=== PATIENT | female | born 1940 | race Caucasian/White ===

== ENCOUNTER → 2016-09-22 | Outpatient (CLI) | payer MEDICARE ==
[~2016-09-22] MED LIST: ASPIRIN 32325 MG/TAB PO; CARDIZEM CD 12120 MG PO; COZAAR100 MG PO; MULTI VITAMINS1 TAB PO; PEPCID 20MG TAB20 MG PO; SYNTHROID0.05 MG/TA PO; TOPROL XL100 MG PO; XANAX 0.5MG0.5 MG PO; ZOCOR 10MG10 MG PO
[2016-09-22 10:19] LABS: BASO # 0.1 (0.0-0.2); BASO % 0.8 % (0.0-2.0); EOS # 0.1 (0.0-0.7); EOS % 1.5 % (0-4.0); GRAN # 2.9 (1.4-6.5); GRAN % 47.7 % (42.2-75.2); HEMATOCRIT 39.8 % (37.0-47.0); HEMOGLOBIN 13.3 g/dl (12.5-16.0); LYMPH # 2.5 (1.2-3.4); LYMPH % 41.4 % (20.0-51.0); MEAN CELL VOLUME 95 fl (80.0-100.0); MEAN CORPUSCULAR HEMOGLOBIN 32 pg (27.0-31.0); MEAN CORPUSCULAR HGB CONC 33 g/dl (33.0-37.0); MEAN PLATELET VOLUME 9.5 fl (7.4-10.4); MONO # 0.5 (0.1-0.6); MONO % 8.4 % (1.7-9.3); PLATELET COUNT 305 K/mm3 (130-400); RED BLOOD COUNT 4.18 M/mm3 (4.10-5.30); REDCELL DISTRIBUTION WIDTH-CV 13.6 % (11.5-14.5); WHITE BLOOD COUNT 6.1 K/mm3 (4.8-10.8)
[2016-09-22 10:30] LABS: ADJUSTED CALCIUM 9.5 mg/dL (8.4-10.2); ALBUMIN 4.2 gm/dL (3.5-5.0); BILIRUBIN,TOTAL 0.9 mg/dL (0.0-1.0); CALCIUM 9.7 mg/dL (8.4-10.2); CREATININE, serum 0.8 mg/dL (0.52-1.25); TOTAL PROTEIN 7.3 gm/dL (6.4-8.2)
== END ==
LOC: COL.RAD 09:38
PROVIDERS: Internal Medicine
DX: E04.1 Nontoxic single thyroid nodule (principal)

== ENCOUNTER → 2017-01-05 | Outpatient (CLI) | payer MEDICARE, MEDICAID | LOC: COL.RAD 09:45 | DX: N28.1 Cyst of kidney, acquired (principal); I70.0 Atherosclerosis of aorta ==

== ENCOUNTER → 2017-02-28 | Outpatient (CLI) | payer MEDICARE ==
[~2017-02-28] VITALS: Ht 160 cm; Wt 54.6 kg
[2017-02-28 11:54] VITALS: BP 151/94; PULSE 67
[2017-02-28 13:10] VITALS: BP 157/93; PULSE 71
== END ==
LOC: COL.VAS 08:15
DX: E04.1 Nontoxic single thyroid nodule (principal); I65.22 Occlusion and stenosis of left carotid artery; E03.9 Hypothyroidism, unspecified; E78.5 Hyperlipidemia, unspecified; F17.210 Nicotine dependence, cigarettes, uncomplicated; I10 Essential (primary) hypertension; Z90.710 Acquired absence of both cervix and uterus; Z90.721 Acquired absence of ovaries, unilateral; Z98.890 Other specified postprocedural states

== ENCOUNTER → 2021-04-24 | Outpatient (CLI) | payer MEDICARE | LOC: COL.RAD 10:56 | DX: K57.30 Diverticulosis of large intestine without perforation or abscess without bleeding (principal) | CPT/HCPCS: Q9967 ==

== ENCOUNTER 2021-08-01 15:58 | Inpatient (IN) | payer MEDICARE ==
[~2021-08-01] VITALS: Ht 160 cm; Wt 50.4 kg
[2021-08-01 18:40] LABS: BASO % 0.4 % (0.0-2.0); EOS # 0.1 K/mm3 (0.0-0.7); EOS % 0.9 % (0-4.0); GRAN # 6.2 K/mm3 (1.4-6.5); GRAN % 77.9 % (42.2-75.2); HEMOGLOBIN 11.8 g/dl (12.5-16.0); LYMPH # 1.2 K/mm3 (1.2-3.4); LYMPH % 14.6 % (20.0-51.0); MEAN CELL VOLUME 97 fl (80.0-100.0); MEAN CORPUSCULAR HEMOGLOBIN 32 pg (27.0-31.0); MEAN CORPUSCULAR HGB CONC 32 g/dl (33.0-37.0); MEAN PLATELET VOLUME 9.6 fl (7.4-10.4); MONO # 0.5 K/mm3 (0.1-0.6); MONO % 5.9 % (1.7-9.3); PLATELET COUNT 374 K/mm3 (130-400); RED BLOOD COUNT 3.75 M/mm3 (4.10-5.30); REDCELL DISTRIBUTION WIDTH-CV 13.9 % (11.5-14.5)
[2021-08-01 18:46] LABS: HEMATOCRIT 36.4 % (37.0-47.0)
[2021-08-01 19:01] LABS: PROTHROMBIN TIME 10.9 SECONDS (9.7-12.8)
[2021-08-01 19:50] LABS: ALBUMIN 3.6 gm/dL (3.4-4.8); BILIRUBIN,TOTAL 0.3 mg/dL (0.2-1.2); CALCIUM 9.1 mg/dL (8.4-10.2); CREATININE, serum 0.79 mg/dL (0.57-1.11); POTASSIUM 3.8 mmol/L (3.5-4.5); TOTAL PROTEIN 6.4 gm/dL (6.2-8.1)
[2021-08-01] MEDS ORDERED: FOSAMAX 70MG TA70 MG PO (19:52)
[2021-08-01] MEDS ORDERED: ZOFRAN 4MG T4 MG/TAB PO (19:52)
[2021-08-01] MEDS ORDERED: HCTZ12.5TAB PO (19:53)
[2021-08-01] MEDS ORDERED: NORCO 325 MG-51 TAB PO (19:53)
[2021-08-01] MEDS ORDERED: BENICAR40 MG PO (19:54)
[2021-08-01 20:31] LABS: COLLECTION METHOD CATHETER
[2021-08-01] MEDS ORDERED: PRIL40 PO (20:33)
[2021-08-01 20:36] LABS: PH 5 (5-8); SQUAMOUS EPITHELIAL None Seen /hpf (0-10); URINE APPEARANCE Clear (CLEAR/HAZY); URINE BACTERIA None Seen (NONE SEEN); URINE BILIRUBIN Negative (NEGATIVE); URINE BLOOD Negative (NEGATIVE); URINE COLOR Yellow (YELLOW); URINE GLUCOSE Negative (NEGATIVE); URINE KETONE Negative (NEGATIVE); URINE LEUKOCYTE ESTERASE Trace (NEGATIVE); URINE NITRATE Negative (NEGATIVE); URINE PROTEIN(semi-quant) Negative (NEGATIVE); URINE RBC 0-2 /hpf (0-2); URINE UROBILINOGEN Negative (NEGATIVE)
[2021-08-01 20:40] VITALS: BP 157/63; PULSE 81; TEMP 98.1
[2021-08-02] VITALS (12 sets, daily range): BP systolic 102–155; BP diastolic 43–72; PULSE 16–94; TEMP 97.7–98.6
--- NOTE | 2021-08-02 00:18 | NUR ---
Pt. arrived to the floor at 08/01. Pt. was A&OX3, assessment was completed at that time. 16 Fr. steele catheter placed with 1 attempt. Pt. tolerated well. Pt. reported pain at a 7 on pain scale, gave pain meds. Pt. denied further needs, call light was within reach. At this time. Pt. reports pain at a 6 on pain scale, will give pain meds per orders. Pt. denies further needs.
[2021-08-02 08:03] LABS: BASO % 0.6 % (0.0-2.0); EOS # 0.1 K/mm3 (0.0-0.7); EOS % 0.9 % (0-4.0); GRAN # 4.2 K/mm3 (1.4-6.5); GRAN % 61.2 % (42.2-75.2); HEMOGLOBIN 10.3 g/dl (12.5-16.0); LYMPH # 1.8 K/mm3 (1.2-3.4); LYMPH % 25.8 % (20.0-51.0); MEAN CELL VOLUME 96 fl (80.0-100.0); MEAN CORPUSCULAR HEMOGLOBIN 31 pg (27.0-31.0); MEAN CORPUSCULAR HGB CONC 33 g/dl (33.0-37.0); MEAN PLATELET VOLUME 9.9 fl (7.4-10.4); MONO # 0.8 K/mm3 (0.1-0.6); MONO % 11.2 % (1.7-9.3); PLATELET COUNT 327 K/mm3 (130-400); RED BLOOD COUNT 3.31 M/mm3 (4.10-5.30); REDCELL DISTRIBUTION WIDTH-CV 13.9 % (11.5-14.5)
[2021-08-02 08:05] LABS: HEMATOCRIT 31.6 % (37.0-47.0)
[2021-08-02 08:12] LABS: CALCIUM 9.3 mg/dL (8.4-10.2); CREATININE, serum 0.86 mg/dL (0.57-1.11); POTASSIUM 3.5 mmol/L (3.5-4.5)
--- NOTE | 2021-08-02 10:32 | NUR ---
Hospitalist rounds, ekg obtained, cleared for surgery. Ortho aware. Patient signs consent, fall precautions in place. TEDs applied. SCD's on. IV fluids infusing as ordered to right wrist IV site. Morphine given x2 for pain. Son called, updated on patient going to OR for blocks, instruction on how to get to the OR waiting room and to call the number to let them know when he arrives. Son states understanding. Ziegler catheter to dependent drainage clear yellow urine, secured, catheter care given. Patient describes chronic reddened area to upper buttock/coccyx area, reports it chronically gets worse and then better. No noted open areas, reddened, and scarred. Foam coccyx dressing applied to this area for protection. Patient repositioned q 2 hours. Ice to right hip. Alert, oriented x4. Makes needs known. See MAR for medications given/held prior to surgery. Patient down to OR at approx 1020, report given to RUTHIE Adamson.
--- NOTE | 2021-08-02 12:38 | NUR ---
Patient returns to room 326 accompanied by the PACU nurse at 1225. Patient reports only mild discomfort. Dressings to right hip, gauze and tegaderm x3. TAking in ice water without c/o nausea. Family at bedside. IV fluids infusing to right wrist INT. Ziegler catheter to dependent drainage. TEDs on, SCD's on. IS encouraged. Post op VS WNL. CAll light within reach.
--- NOTE | 2021-08-02 18:08 | NUR ---
Patient denies pain since returning from OR. VSS. EAts dinner meal with no n/v. Alert, oriented x4, talking on phone. ICE to incisions. CAll light within reach. FAll precautions in place.
--- NOTE | 2021-08-02 19:45 | NUR ---
Pt. laying in bed at this time. Pt. is A&OX3, assessment complete. IV to rt. forearm patent, IV Fluids infusing per orders. Ziegler catheter to DD, clear yellow urine noted. Dressings x3 to rt. hip/thigh, CDI. Pt. reports pain at a 6 on pain scale, gav pain meds per orders. Pt. denies further needs, call light within reach.
[2021-08-03] VITALS (7 sets, daily range): BP systolic 107–149; BP diastolic 54–95; PULSE 74–77; TEMP 97.5–98.6
[2021-08-03 06:58] LABS: HEMATOCRIT 28.5 % (37.0-47.0); HEMOGLOBIN 9.5 g/dl (12.5-16.0)
[2021-08-03 07:15] LABS: CALCIUM 8.2 mg/dL (8.4-10.2); CREATININE, serum 0.65 mg/dL (0.57-1.11); MAGNESIUM 1.7 mg/dL (1.6-2.6); POTASSIUM 3.6 mmol/L (3.5-4.5)
--- NOTE | 2021-08-03 10:00 | NUR ---
PT UP TO RECLINER WITH THERAPY AFTER HAVING CT DONE THIS AM. NEW DIET ORDER IN. PT TO REHAB AT A SNF OR IPR.
--- NOTE | 2021-08-03 14:26 | NUR ---
Hand Gluer And Slicer met with patient to discuss discharge planning. Patient lives alone in [place] and sees Dr. Handley for primary care. Patient has medications delivered from [facility] with no difficulties. Patient states she has a cane but normally does not use any DME and is independent with ADLS. Patient advised she is not sure if she has DPOA-HC. Patient reports her , Pierre lives at [facility] and she has two living, adult children: Stephon (ph#[phone]) and Manuel. SW reviewed PT recommendation for post acute rehab and patient is agreeable to this. Patient's preferences for rehab are 1)[facility] and 2)[facility]. CHILO contacted Milla at [facility] and faxed referral. CHILO then contacted Macrina, [facility] Director to give referral. CHILO also contacted patient's son, Stephon to provide update and he is in agreement with patient going to rehab at time of discharge. CHILO faxed clinicals to [facility] as patient as a Medicare Advantage Plan ([facility]). CHILO was contacted by Milla at [facility] who advised they are able to accept patient for a skilled stay. Discharge Plan: [facility]
--- NOTE | 2021-08-03 20:53 | NUR ---
PT IN BED, REPORTS PAIN TO LEFT HEEL AND COCCYX. HAS MEPILEX INTACT TO COCCYX. MEDICATED WITH HS MEDS INCLUDING OXYCODONE 5MG PO AND ELEVATED HEELS ON PILLOW. HAS DRSGS X3 TO RT HIP/THIGH. SL TO RFA, FLUSHES WELL. HAS PRODUCTIVE COUGH AT TIMES. SCDS ON. CAMARGO TO BSD WITH YELLOW URINE.
--- NOTE | 2021-08-03 22:56 | NUR ---
STILL COMPLAINS OF LEFT HEEL PAIN, REMOVED LEFT SCD AND ELVIE STODDARD. MEDICATED WITH NORCO 5/325 1 TAB PO NOW.
[2021-08-04 03:21] VITALS: BP 131/59; PULSE 64; TEMP 98.4
--- NOTE | 2021-08-04 05:41 | NUR ---
PT TAKES OXYCODONE 5MG PO FOR PAIN. SCHEDULED AM MEDS GIVEN.
[2021-08-04 06:45] LABS: BASO % 0.3 % (0.0-2.0); EOS % 0.1 % (0-4.0); GRAN # 6.9 K/mm3 (1.4-6.5); GRAN % 70.6 % (42.2-75.2); LYMPH # 1.8 K/mm3 (1.2-3.4); LYMPH % 18.7 % (20.0-51.0); MEAN CELL VOLUME 94 fl (80.0-100.0); MEAN CORPUSCULAR HGB CONC 33 g/dl (33.0-37.0); MEAN PLATELET VOLUME 10.2 fl (7.4-10.4); MONO % 9.9 % (1.7-9.3); PLATELET COUNT 287 K/mm3 (130-400); RED BLOOD COUNT 2.79 M/mm3 (4.10-5.30); REDCELL DISTRIBUTION WIDTH-CV 14.1 % (11.5-14.5)
[2021-08-04 06:49] LABS: HEMATOCRIT 26.3 % (37.0-47.0); HEMOGLOBIN 8.7 g/dl (12.5-16.0); MEAN CORPUSCULAR HEMOGLOBIN 31 pg (27.0-31.0)
[2021-08-04 07:01] LABS: CREATININE, serum 0.64 mg/dL (0.57-1.11); POTASSIUM 3.6 mmol/L (3.5-4.5)
[2021-08-04 08:00] VITALS: BP 156/87; PULSE 70; TEMP 98.8
--- NOTE | 2021-08-04 10:30 | NUR ---
Initial visit; Patient thanked Hospitality Aide for looking in on her and offering God's blessings and to keep her in Hospitality Aide's prayers.
--- NOTE | 2021-08-04 10:49 | NUR ---
PT UP TO RECLINER WITH THERAPY. BREAKFAST ORDERED. PHYSICAIN ROUNDING. PLAN ON TRANSFER TO [facility] AFTER INSURANCE CLEARANCE.
[2021-08-04 11:27] VITALS: BP 135/64; PULSE 65; TEMP 98.2
[2021-08-04 16:00] VITALS: BP 159/76; PULSE 73; TEMP 99
--- NOTE | 2021-08-04 16:21 | NUR ---
Jackaroo contacted [facility] and was advised they do not manage her plan. CHILO provided this update to Milla at [facility]. Milla inquired about patient's outpatient biopsy. CHILO collaborated with DUSTIN Doyle who advised Dr. Davis recommended patient go to rehab for her hip prior to biopsy. Milla states her team is agreeable to this. Milla called and advised they heard back from patient's insurance and were advised patient does not require prior authorization. Milla states they are able to accept patient tomorrow. CHILO updated patient's RN. CHILO met with patient and advised her that [facility] can accept tomorrow. Patient is agreeable to this. CHILO also contacted patient's son, Stephon to provide update. Discharge Plan: [facility]
--- NOTE | 2021-08-04 19:30 | NUR ---
ASSISTED PT TO BATHROOM, HAS LARGE BROWN LIQUID STOOL. BACK TO BED WITH ONE ASSIST/GAIT BELT/WALKER. HAS CAMARGO TO BSD WITH YELLOW URINE.
--- NOTE | 2021-08-04 19:42 | NUR ---
MEDICATED WITH ZOFRAN PO FOR NAUSEA. ALSO TAKES OXYCODONE 5MG PO AND XANAX 0.5 MG PO FOR ANXIETY AND RT HIP PAIN. DRSGS D/I TO RT HIP/THIGH. SL TO RFA FLUSHES WELL.
[2021-08-04 19:53] VITALS: BP 133/62; PULSE 76; TEMP 98
--- NOTE | 2021-08-04 22:09 | NUR ---
MEDICATED WITH HS MEDS INCLUDING NORCO FOR PAIN. [facility]
[2021-08-05 00:23] VITALS: BP 147/70; PULSE 68; TEMP 97.8
[2021-08-05 03:14] VITALS: BP 106/57; PULSE 68; TEMP 98
--- NOTE | 2021-08-05 06:30 | NUR ---
Takes scheduled morning meds without problem. Good urine output from steele.
--- NOTE | 2021-08-05 06:40 | NUR ---
appears to be sleeping, bedside shift report received from RUTHIE Cisneros
--- NOTE | 2021-08-05 07:45 | NUR ---
DUSTIN Brink in to see patient, order received and steele catheter discontinued, urine is light brenda and she was encouraged to drink more water, verbalizes understanding, full assessment completed, see interventions for further info, c/o a "lump" under her buttocks, removed pressure ulcer dressing, cocyx is reddened and new smaller foam dressing applied
[2021-08-05 08:12] VITALS: BP 135/61; PULSE 73; TEMP 98.3
[2021-08-05 08:16] LABS: BASO % 0.5 % (0.0-2.0); EOS % 0.5 % (0.0-4.0); GRAN # 5.2 K/mm3 (1.4-6.5); GRAN % 62.4 % (42.2-75.2); LYMPH # 2.2 K/mm3 (1.2-3.4); LYMPH % 26.1 % (20.0-51.0); MEAN CELL VOLUME 94 fl (80.0-100.0); MEAN CORPUSCULAR HGB CONC 33 g/dl (33.0-37.0); MEAN PLATELET VOLUME 10.3 fl (7.4-10.4); MONO # 0.9 K/mm3 (0.1-0.6); MONO % 10.4 % (1.7-9.3); PLATELET COUNT 332 K/mm3 (130-400); RED BLOOD COUNT 2.98 M/mm3 (4.10-5.30); REDCELL DISTRIBUTION WIDTH-CV 14.2 % (11.5-14.5)
[2021-08-05 08:18] LABS: HEMATOCRIT 27.9 % (37.0-47.0); HEMOGLOBIN 9.2 g/dl (12.5-16.0); MEAN CORPUSCULAR HEMOGLOBIN 31 pg (27-31)
[2021-08-05 08:19] LABS: CALCIUM 9.3 mg/dL (8.4-10.2); CREATININE, serum 0.73 mg/dL (0.57-1.11); POTASSIUM 3.6 mmol/L (3.5-4.5)
[2021-08-05] MEDS ORDERED: OSCAL 500 TAB500 MG PO (08:20)
[2021-08-05] MEDS ORDERED: TYLENOL 500MG500 MG PO (08:21)
[2021-08-05] MEDS ORDERED: VITAMIN C500 MG PO (08:21)
[2021-08-05] MEDS ORDERED: NORCO 325 MG-51 TAB PO (08:46)
[2021-08-05] MEDS ORDERED: XANAX 0.5MG0.5 MG PO (08:46)
--- NOTE | 2021-08-05 09:00 | NUR ---
had breakfast and tolerated well
--- NOTE | 2021-08-05 09:15 | NUR ---
occupational therapy was in and worked with patient and assisted up into recliner, medicated with norco 5mg 1 tab for c/o pain to right hip,
--- NOTE | 2021-08-05 09:45 | NUR ---
physical therapy was in and worked with patient and assisted her back to bed per the patient's request, will encourage patient stay up longer in chair the next time
[2021-08-05 10:26] VITALS: BP 135/61; PULSE 73; TEMP 98.3
--- NOTE | 2021-08-05 10:50 | NUR ---
STEEPING PRESS TENDER in to assist her with getting cleaned up and dressed for transfer to [facility], ambulated to bathroom and voided qs
[2021-08-05 11:43] VITALS: BP 136/64; PULSE 72; TEMP 98.5
--- NOTE | 2021-08-05 11:50 | NUR ---
report called to Mar at [facility], pateint discharge per WC
--- NOTE | 2021-08-05 13:24 | NUR ---
Cut Out Operator faxed clinical updates to Milla at [facility] who advised they can accept patient for a skilled stay today. Transport time set for 1130. SW met with patient to provide transport time. Patient's son, Stephon is at bedside and they are both in agreement with discharge plan. SW presented and reviewed IM form with patient who verbalized understanding and provided signature. SW placed form in chart and provided copy to patient. SW faxed discharge orders and negative COVID results to Milla at [facility]. Discharge Plan: [facility]
== END 2021-08-05 11:50 | DRG 480 ==
LOC: COL.ER 15:58 → SURG 18:40
PROVIDERS: Orthopaedic Surgery Sports Medicine; Physician Assistant; Student in an Organized Health Care Education/Training Program; ADMIT Internal Medicine
PROC: 0QH634Z Insertion of Internal Fixation Device into Right Upper Femur, Percutaneous Approach (ICD-10-PCS; principal; 2021-08-02 11:30)
DX: S72.141A Displaced intertrochanteric fracture of right femur, initial encounter for closed fracture (principal); J96.01 Acute respiratory failure with hypoxia; J98.11 Atelectasis; F17.210 Nicotine dependence, cigarettes, uncomplicated; I10 Essential (primary) hypertension; E03.9 Hypothyroidism, unspecified; K21.9 Gastro-esophageal reflux disease without esophagitis; F41.9 Anxiety disorder, unspecified; I65.29 Occlusion and stenosis of unspecified carotid artery; K57.90 Diverticulosis of intestine, part unspecified, without perforation or abscess without bleeding; I70.208 Unspecified atherosclerosis of native arteries of extremities, other extremity; D64.9 Anemia, unspecified; R91.1 Solitary pulmonary nodule; J44.9 Chronic obstructive pulmonary disease, unspecified; I35.0 Nonrheumatic aortic (valve) stenosis; X50.1XXA Overexertion from prolonged static or awkward postures, initial encounter; Y93.89 Activity, other specified; Y92.008 Other place in unspecified non-institutional (private) residence as the place of occurrence of the external cause; Z79.82 Long term (current) use of aspirin; Z20.822 Contact with and (suspected) exposure to COVID-19
CPT/HCPCS: 99223-AI; 99232-AI; 99233-AI; 99239; A9284; C1713; J0690; J1100; J1170; J2250; J2270; J2405; J2704; J2795; J3010; J7030; Q9967

== ENCOUNTER → 2022-02-15 | Outpatient (CLI) | payer MEDICARE ==
[~2022-02-15] MED LIST changes: +ASPIRIN 32325 MG/TA1 PO; +BENICAR40 MG PO; +CYMBALTA 60MG60 MG PO; +FOSAMAX 70MG TA70 MG PO; +HCTZ12.5TAB PO; +LIPITOR20 MG PO; +NORCO 325 MG-51 TAB PO; +OSCAL 500 TAB500 MG PO; +PRIL40 PO; +SYNTHROID0.075 MG/T PO; +TYLENOL 500MG500 MG PO; +VITAMIN C500 MG PO; +VITAMINC1000TA PO; +ZOFRAN 4MG T4 MG/TAB PO
== END ==
LOC: COL.LAB 09:19
DX: Z01.89 Encounter for other specified special examinations (principal)

== ENCOUNTER → 2022-02-15 | Outpatient (CLI) | payer MEDICARE | LOC: MC.RAD 09:08 | DX: R91.8 Other nonspecific abnormal finding of lung field (principal) ==

== ENCOUNTER 2022-03-26 07:24 | Outpatient (CLI) | payer MEDICARE ==
[2022-03-26] VITALS (17 sets, daily range): BP systolic 118–194; BP diastolic 56–88; PULSE 56–70; TEMP 97.9
[~2022-03-26] VITALS: Ht 160 cm; Wt 54.2 kg
--- NOTE | 2022-03-26 12:58 | NUR ---
Discharge instructions given to pt.Pt verbalizes understanding.INT removed,catheter tip intact.Pt escorted out via wheelchair by this nurse.
== END 2022-03-26 13:50 ==
LOC: COL.RAD 07:24
DX: R91.8 Other nonspecific abnormal finding of lung field (principal)
CPT/HCPCS: J3010

== ENCOUNTER 2022-06-25 14:27 | Emergency (ER) | payer MEDICARE ==
[~2022-06-25] VITALS: Ht 160 cm; Wt 53.6 kg
[2022-06-25 14:28] VITALS: TEMP 98
[2022-06-25 15:05] LABS: BASO % 0.5 % (0.0-2.0); EOS # 0.1 K/mm3 (0.0-0.7); EOS % 0.6 % (0.0-4.0); GRAN # 7.2 K/mm3 (1.4-6.5); GRAN % 87.3 % (42.2-75.2); HEMATOCRIT 32.4 % (37.0-47.0); LYMPH # 0.4 K/mm3 (1.2-3.4); LYMPH % 4.9 % (20.0-51.0); MEAN CELL VOLUME 91 fl (80.0-100.0); MEAN CORPUSCULAR HEMOGLOBIN 28 pg (27-31); MEAN CORPUSCULAR HGB CONC 31 g/dl (33.0-37.0); MONO # 0.5 K/mm3 (0.1-0.6); MONO % 6.5 % (1.7-9.3); PLATELET COUNT 367 K/mm3 (130-400); RED BLOOD COUNT 3.55 M/mm3 (4.10-5.30); REDCELL DISTRIBUTION WIDTH-CV 18.6 % (11.5-14.5)
[2022-06-25 15:16] LABS: ALANINE AMINOTRANSFERASE 17 U/L (0-55); ALBUMIN 3.4 gm/dL (3.4-4.8); ALKALINE PHOSPHATASE 74 U/L (40-150); ANION GAP 11 mmol/L (7-16); AST,SGOT 26 U/L (5-34); BILIRUBIN,TOTAL 0.3 mg/dL (0.2-1.2); BLOOD UREA NITROGEN 14 mg/dL (10-20); CALCIUM 9.1 mg/dL (8.4-10.2); CARBON DIOXIDE 28 mmol/L (23-31); CHLORIDE 99 mmol/L (98-107); CREATININE, serum 0.78 mg/dL (0.57-1.11); GLUCOSE 97 mg/dL (70-99); POTASSIUM 3.6 mmol/L (3.5-4.5); SODIUM 138 mmol/L (136-145); TOTAL PROTEIN 6.5 gm/dL (6.2-8.1)
[2022-06-25 15:22] LABS: TROPONIN-I < 0.010 ng/mL (0.00-0.033)
[2022-06-25 15:41] LABS: COLLECTION METHOD CATHETER
[2022-06-25 15:49] LABS: SQUAMOUS EPITHELIAL None Seen /hpf (0-10); URINE BACTERIA Rare /hpf (NONE SEEN)
[2022-06-25 15:50] LABS: URINE APPEARANCE Hazy (CLEAR/HAZY); URINE BLOOD TRACE-INTACT (NEGATIVE); URINE COLOR Yellow (YELLOW); URINE GLUCOSE Negative (NEGATIVE); URINE KETONE Negative (NEGATIVE); URINE NITRATE Negative (NEGATIVE); URINE PROTEIN(semi-quant) Negative (NEGATIVE); URINE UROBILINOGEN 0.2 E.U/dL (0.2-1.0)
[2022-06-25] MEDS ORDERED: CEPHALEXIN500 M1 PO (17:46)
[2022-06-25 18:06] VITALS: BP 155/72; PULSE 96
== END 2022-06-25 18:06 | disposition home or self-care (01) ==
LOC: COL.ER 14:27
PROVIDERS: Emergency Medicine
DX: N39.0 Urinary tract infection, site not specified (principal); R09.02 Hypoxemia; F17.200 Nicotine dependence, unspecified, uncomplicated; Z85.118 Personal history of other malignant neoplasm of bronchus and lung; Z92.3 Personal history of irradiation; Z88.2 Allergy status to sulfonamides; Z20.822 Contact with and (suspected) exposure to COVID-19; W08.XXXA Fall from other furniture, initial encounter; Y92.009 Unspecified place in unspecified non-institutional (private) residence as the place of occurrence of the external cause
CPT/HCPCS: J0696; J1100; J7120; Q9967